=== PATIENT | female | born 1990 ===

== ENCOUNTER → 2025-02-05 | Outpatient (CLI) | payer BC ==
[2025-02-08 08:07] LABS: APTIMA MEDIA TYPE Urine; C. TRACHOMATIS BY TMA Negative (Negative); N. GONORRHOEAE BY TMA Negative (Negative)
== END | disposition home or self-care (01) ==
LOC: LAB 12:53 → LAB SHORT 12:53
PROVIDERS: Obstetrics & Gynecology
DX: Z11.3 Encounter for screening for infections with a predominantly sexual mode of transmission (principal)
CPT/HCPCS: 87491; 87591

== ENCOUNTER → 2025-04-15 | Outpatient (CLI) | payer BC ==
[2025-04-15 11:59] LABS: Source, Urine Clean Catch
[2025-04-15 13:49] LABS: Bilirubin, Urine Neg (Neg); Color, Urine Yellow (P-Yellow); Glucose Qualitative, Urine 3+ (Neg); Ketones, Urine Neg (Neg); Leukocyte Esterase, Urine Neg (Neg); Protein, Urine 2+ (Neg); Specific Gravity, Urine 1.025 (1.003-1.022); Urobilinogen, Urine NORM (Normal)
== END ==
LOC: LAB 11:57 → LAB SHORT 11:57
PROVIDERS: Obstetrics & Gynecology
DX: R31.9 Hematuria, unspecified (principal)
CPT/HCPCS: 81001; 87086